=== PATIENT | female | born 1930 | race African-American/Black ===

== ENCOUNTER 2017-04-20 01:56 | Inpatient (IN) | payer BC, OTHER ==
[~2017-04-20] VITALS: Ht 157.5 cm; Wt 50.5 kg
[~2017-04-20 01:56] MED LIST: Albuterol Sulfate HHN; CLOP75TA15 PO; COR25 PO; FLUT1DIS3 ORI; LOSA50TA20 PO; SPIR25TA PO
[2017-04-20] MEDS ORDERED: NITROGLYCERIN OINT 1GM/INCH UDPKT TD STA (02:38)
[2017-04-20] MEDS ORDERED: FUROSEMIDE 40MG/4ML VIAL IV STA (02:38)
[2017-04-20 03:03] LABS: BASOPHILS % 0.4 % (0.0-2.0); HEMATOCRIT. 30.9 % (36.0-48.0); LYMPHOCYTES % 14.7 % (20.0-50.0); MEAN CORPUSCULAR HEMOGLOBIN 24.4 pg (28.0-32.0); MEAN CORPUSCULAR VOLUME 75.1 fL (81.0-99.0); MEAN PLATELET VOLUME 9.4 fl (7.4-10.4); MONOCYTES % 4.8 % (2.0-8.0); NEUTROPHILS % 79.1 % (40.0-76.0); PLATELET 119 x1000/uL (130-400); RED BLOOD CELL COUNT 4.11 mill/uL (4.2-5.4); RED CELL DISTRIBUTION WIDTH 17.5 % (11.6-14.6)
[2017-04-20 03:18] LABS: CARBON DIOXIDE 22 mEq/L (21-32); CHLORIDE 114 mEq/L (98-107); TROPONIN I 0.04 ng/mL (0.00-0.04)
[2017-04-20 03:47] LABS: BG BASE EXCESS -7.8 mmol/L (-2.0-2.0); BG BILEVEL POS AIRWAY PRESSURE 15/5; BG CARBOXYHEMOGLOBIN 0.3 % (0.5-1.5); BG DEOXYHEMOGLOBIN 1.9 % (0.0-5.0); BG FRACTION INSPIRED OXYGEN 50; BG HCO3 ACT 15.9 mmol/L (22.0-26.0); BG METHEMOGLOBIN 0.5 % (0.0-1.5); BG OXYGEN SATURATION 98.1 % (92.0-98.5); BG OXYHEMOGLOBIN 97.3 % (94.0-97.0); BG PCO2 26.7 mmHg (35.0-45.0); BG PH 7.392 (7.350-7.450); BG PO2 121.4 mmHg (75.0-100.0); BG SAMPLE SITE RIGHT RADIAL; BG TOTAL HEMOGLOBIN 9.9 g/dL (12.0-18.0); BG VENT MODE MASK - BIPAP
[2017-04-20 08:20] VITALS: BP 159/67
[2017-04-20] MEDS ORDERED: IPRATROPIUM/ALBUTEROL 0.5-3(2.5)MG/3ML NEB INH PRN (09:15)
[2017-04-20] MEDS ORDERED: HYDROCODONE/ACETAMINOPHEN 5/325MG TABLET PO PRN (09:15)
[2017-04-20] MEDS ORDERED: DOCUSATE SODIUM 100MG CAPSULE PO PRN (09:15)
[2017-04-20] MEDS ORDERED: LORAZEPAM 0.5MG TABLET PO PRN (09:15)
[2017-04-20] MEDS ORDERED: NA PHOS,M-B/NA PHOS,DI-BA ENEMA 118ML PR PRN (09:15)
[2017-04-20] MEDS ORDERED: MAGNESIUM/ALUMINUM HYDROXIDE/SIMETHICONE 30ML UDC PO PRN (09:15)
[2017-04-20] MEDS ORDERED: CLONIDINE 0.1MG TABLET PO PRN (09:15)
[2017-04-20] MEDS ORDERED: GUAIFENESIN 200MG/10ML SUGAR FREE UDC PO PRN (09:15)
[2017-04-20] MEDS ORDERED: ONDANSETRON HCL 4MG/2ML VIAL IV PRN (09:15)
[2017-04-20] MEDS ORDERED: ACETAMINOPHEN 325MG TABLET PO PRN (09:15)
[2017-04-20] MEDS ORDERED: DIPHENHYDRAMINE 50MG/ML VIAL IV PRN (09:15)
[2017-04-20] MEDS ORDERED: MORPHINE SULFATE 2 MG/ML CPJ (NOT FOR IM USE) IV PRN (09:15)
[2017-04-20] MEDS: ENOXAPARIN 30MG/0.3ML SYR SUBCUT SCH ×2 (10:30→14:08)
[2017-04-20 12:00] VITALS: BP 99/69
[2017-04-20 12:09] VITALS: BP 148/78
[2017-04-20] MEDS ORDERED: ATOR10TA69 PO (13:50)
[2017-04-20] MEDS ORDERED: FURO20TA4 PO (13:50)
[2017-04-20] MEDS ORDERED: OMEG1CAP66 PO (13:50)
[2017-04-20] MEDS ORDERED: MEGE40TA2 PO (13:50)
[2017-04-20] MEDS ORDERED: HYDR-4133 PO (13:50)
[2017-04-20] MEDS ORDERED: POTA10TA11 PO (13:50)
[2017-04-20] MEDS ORDERED: PRED10DR LEFTEYE (14:00)
[2017-04-20 16:00] VITALS: BP 128/65
[2017-04-20 17:25] LABS: CREATINE KINASE MB FRACTION 1.9 ng/mL (0.5-3.6); TROPONIN I 0.12 ng/mL (0.00-0.04)
[2017-04-20] MEDS ORDERED: ALBUTEROL SULFATE HHN PRN (19:45)
[2017-04-20 20:00] VITALS: BP 128/62
[2017-04-20] MEDS ORDERED: SALMETEROL ORI SCH (21:00)
[2017-04-20] MEDS ORDERED: CARVEDILOL 25MG TABLET PO SCH (21:00)
[2017-04-20] MEDS ORDERED: FLUTICASONE ORI SCH (21:00)
[2017-04-20] MEDS: PREDNISOLONE ACETATE 1% OPHTH DROPS 1ML LEFTEYE SCH (21:24)
[2017-04-20] MEDS: CARVEDILOL 12.5MG TABLET PO SCH (21:25)
[2017-04-20 23:21] LABS: CREATINE KINASE MB FRACTION 1.5 ng/mL (0.5-3.6); TROPONIN I 0.1 ng/mL (0.00-0.04)
[2017-04-21] VITALS: BP 137/72
[2017-04-21 04:00] VITALS: BP 143/77
[2017-04-21] MEDS ORDERED: HYDRALAZINE HCL 25MG TABLET PO SCH (06:30)
[2017-04-21 07:21] LABS: BASOPHILS % 0.7 % (0.0-2.0); EOSINOPHILS % 1.8 % (0.0-5.0); HEMATOCRIT. 24.6 % (36.0-48.0); HEMOGLOBIN. 8.1 g/dL (12.0-16.0); LYMPHOCYTES % 22.3 % (20.0-50.0); MEAN CORPUSCULAR HEMOGLOBIN 24.3 pg (28.0-32.0); MEAN CORPUSCULAR VOLUME 73.7 fL (81.0-99.0); MEAN PLATELET VOLUME 11.6 fl (7.4-10.4); MONOCYTES % 9.3 % (2.0-8.0); NEUTROPHILS % 65.9 % (40.0-76.0); PLATELET 134 x1000/uL (130-400); RED BLOOD CELL COUNT 3.34 mill/uL (4.2-5.4); RED CELL DISTRIBUTION WIDTH 16.5 % (11.6-14.6)
[2017-04-21 08:00] VITALS: BP 137/78
[2017-04-21 08:48] LABS: CARBON DIOXIDE 21 mEq/L (21-32); CHLORIDE 115 mEq/L (98-107); CREATINE KINASE 78 IU/L (26-192); CREATINE KINASE MB FRACTION 1.5 ng/mL (0.5-3.6); HDL CHOLESTEROL 32 mg/dL (40-59); LDL CHOLESTEROL 76 mg/dL (5-100); PHOSPHORUS 3.3 mg/dL (2.5-4.9); T4 FREE 0.96 ng/dL (0.76-1.46)
[2017-04-21] MEDS ORDERED: AMLODIPINE 5MG TABLET PO SCH (09:00)
[2017-04-21] MEDS: MEGESTROL ACETATE 40MG TABLET PO SCH ×2 (09:00→17:33)
[2017-04-21] MEDS ORDERED: POTASSIUM CHLORIDE PO SCH (09:00)
[2017-04-21] MEDS ORDERED: CLOPIDOGREL 75MG TABLET PO SCH (09:00)
[2017-04-21] MEDS ORDERED: FUROSEMIDE 20MG TABLET PO SCH (09:00)
[2017-04-21] MEDS: CLOPIDOGREL 75MG TABLET PO SCH (09:49)
[2017-04-21] MEDS: ASPIRIN 81MG EC TABLET PO SCH (09:49)
[2017-04-21] MEDS: CARVEDILOL 12.5MG TABLET PO SCH ×2 (09:51→21:21)
[2017-04-21] MEDS: SPIRONOLACTONE 25MG TABLET PO SCH (09:51)
[2017-04-21] MEDS: POTASSIUM CHLORIDE 10MEQ TABLET SR PO SCH (09:51)
[2017-04-21] MEDS: ATORVASTATIN CALCIUM 10MG TABLET PO SCH (09:51)
[2017-04-21] MEDS: ENOXAPARIN 30MG/0.3ML SYR SUBCUT SCH ×2 (09:52→10:10)
[2017-04-21] MEDS: LOSARTAN POTASSIUM 50 MG TABLET PO SCH (09:53)
[2017-04-21] MEDS: PREDNISOLONE ACETATE 1% OPHTH DROPS 1ML LEFTEYE SCH ×4 (10:05→21:27)
[2017-04-21] MEDS: FUROSEMIDE 40MG/4ML VIAL IV SCH (10:05)
[2017-04-21 12:00] VITALS: BP 131/65
[2017-04-21 16:00] VITALS: BP 142/63
[2017-04-21 20:00] VITALS: BP 147/56
[2017-04-21] MEDS: HYDRALAZINE HCL 25MG TABLET PO SCH (21:20)
[2017-04-22] VITALS: BP 147/60
[2017-04-22 04:00] VITALS: BP 146/83
[2017-04-22 08:00] VITALS: BP 144/66
[2017-04-22 08:18] LABS: BASOPHILS % 0.7 % (0.0-2.0); EOSINOPHILS % 2.4 % (0.0-5.0); HEMATOCRIT. 25.3 % (36.0-48.0); HEMOGLOBIN. 8.3 g/dL (12.0-16.0); LYMPHOCYTES % 26.1 % (20.0-50.0); MEAN CORPUSCULAR HEMOGLOBIN 24.1 pg (28.0-32.0); MEAN CORPUSCULAR VOLUME 73.5 fL (81.0-99.0); MONOCYTES % 10.4 % (2.0-8.0); NEUTROPHILS % 60.4 % (40.0-76.0); RED BLOOD CELL COUNT 3.44 mill/uL (4.2-5.4)
[2017-04-22 08:30] LABS: PHOSPHORUS 3.2 mg/dL (2.5-4.9)
[2017-04-22 08:50] LABS: PLATELET ESTIMATE SLIGHTLY DECREASED
[2017-04-22 08:51] LABS: MEAN PLATELET VOLUME 10.3 fl (7.4-10.4); PLATELET 118 x1000/uL (130-400)
[2017-04-22] MEDS: CARVEDILOL 12.5MG TABLET PO SCH ×2 (09:07→20:56)
[2017-04-22] MEDS: ASPIRIN 81MG EC TABLET PO SCH (09:07)
[2017-04-22] MEDS: SPIRONOLACTONE 25MG TABLET PO SCH (09:08)
[2017-04-22] MEDS: PREDNISOLONE ACETATE 1% OPHTH DROPS 1ML LEFTEYE SCH ×4 (09:08→20:58)
[2017-04-22] MEDS: POTASSIUM CHLORIDE 10MEQ TABLET SR PO SCH (09:08)
[2017-04-22] MEDS: FUROSEMIDE 40MG/4ML VIAL IV SCH (09:08)
[2017-04-22] MEDS: ATORVASTATIN CALCIUM 10MG TABLET PO SCH (09:08)
[2017-04-22] MEDS: HYDRALAZINE HCL 25MG TABLET PO SCH ×2 (09:08→20:57)
[2017-04-22] MEDS: MEGESTROL ACETATE 40MG TABLET PO SCH ×2 (09:08→16:36)
[2017-04-22] MEDS: LOSARTAN POTASSIUM 50 MG TABLET PO SCH (09:08)
[2017-04-22] MEDS: CLOPIDOGREL 75MG TABLET PO SCH (09:08)
[2017-04-22 12:00] VITALS: BP 118/48
[2017-04-22 16:00] VITALS: BP 143/66
[2017-04-22 20:00] VITALS: BP 121/53
[2017-04-22] MEDS: BUDESONIDE 0.5MG/2ML NEB HHN SCH (23:43)
[2017-04-23] VITALS: BP 131/65
[2017-04-23 04:00] VITALS: BP 141/70
[2017-04-23 07:05] LABS: BASOPHILS % 0.5 % (0.0-2.0); EOSINOPHILS % 2.2 % (0.0-5.0); HEMATOCRIT. 25.1 % (36.0-48.0); HEMOGLOBIN. 8.4 g/dL (12.0-16.0); LYMPHOCYTES % 26.1 % (20.0-50.0); MEAN CORPUSCULAR HEMOGLOBIN 24.4 pg (28.0-32.0); MEAN CORPUSCULAR VOLUME 73.2 fL (81.0-99.0); MEAN PLATELET VOLUME 11.7 fl (7.4-10.4); MONOCYTES % 11.3 % (2.0-8.0); NEUTROPHILS % 59.9 % (40.0-76.0); PLATELET 142 x1000/uL (130-400); RED BLOOD CELL COUNT 3.44 mill/uL (4.2-5.4); RED CELL DISTRIBUTION WIDTH 16.8 % (11.6-14.6)
[2017-04-23] MEDS ORDERED: SODIUM CHLORIDE 0.9% 10ML VIAL ONE (07:37)
[2017-04-23 07:42] LABS: PHOSPHORUS 3.4 mg/dL (2.5-4.9)
[2017-04-23 07:53] VITALS: BP 148/75
[2017-04-23 08:20] VITALS: BP 148/75
[2017-04-23] MEDS: BUDESONIDE 0.5MG/2ML NEB HHN SCH ×2 (08:32→08:34)
[2017-04-23] MEDS ORDERED: FUROSEMIDE 40MG TABLET PO SCH (09:00)
== END 2017-04-23 10:20 | disposition home or self-care (01) | DRG 291 ==
LOC: ER 02:01 → 6WST 04:58 → EDBEDREQ 05:40 → EDBEDREQSVC 05:40 → ENRESERV 09:06 → 5WST 11:24
PROVIDERS: ADMIT Internal Medicine; ATTEND Internal Medicine
PROC: 5A09357 Assistance with Respiratory Ventilation, Less than 24 Consecutive Hours, Continuous Positive Airway Pressure (ICD-10-PCS; principal; 2017-04-20)
DX: I13.0 Hypertensive heart and chronic kidney disease with heart failure and stage 1 through stage 4 chronic kidney disease, or unspecified chronic kidney disease (principal); J96.01 Acute respiratory failure with hypoxia; N17.0 Acute kidney failure with tubular necrosis; E43 Unspecified severe protein-calorie malnutrition; I50.23 Acute on chronic systolic (congestive) heart failure; J44.1 Chronic obstructive pulmonary disease with (acute) exacerbation; E87.2 Acidosis; I42.9 Cardiomyopathy, unspecified; N18.3 Chronic kidney disease, stage 3 (moderate); E11.22 Type 2 diabetes mellitus with diabetic chronic kidney disease; D64.9 Anemia, unspecified; I27.20 Pulmonary hypertension, unspecified; I08.1 Rheumatic disorders of both mitral and tricuspid valves; H40.9 Unspecified glaucoma; I71.4 Abdominal aortic aneurysm, without rupture; I25.10 Atherosclerotic heart disease of native coronary artery without angina pectoris; Z79.02 Long term (current) use of antithrombotics/antiplatelets; Z99.81 Dependence on supplemental oxygen; Z95.810 Presence of automatic (implantable) cardiac defibrillator; Z82.49 Family history of ischemic heart disease and other diseases of the circulatory system; Z68.20 Body mass index [BMI] 20.0-20.9, adult
CPT/HCPCS: 36415; 36600; 71010; 78582; 80048; 80053; 80061; 82375; 82550; 82553; 82805; 83036; 83605; 83735; 83880; 84100; 84439; 84443; 84484; 85025; 85379; 87040; 93005; 93306; 93970; 94640; 94660; 94664; 96374; 99291; A4216; A9558; J1650; J1940; J7620; J7626

== ENCOUNTER 2017-06-12 08:52 | Inpatient (IN) | payer OTHER ==
[2017-06-12] VITALS (10 sets, daily range): BP systolic 133–171; BP diastolic 57–98
[~2017-06-12] VITALS: Ht 157.5 cm; Wt 52.2 kg
[~2017-06-12 08:52] MED LIST changes: +ATOR10TA69 PO; +FURO20TA4 PO; +HYDR-4133 PO; +MEGE40TA2 PO; +OMEG1CAP66 PO; +POTA10TA11 PO; +PRED10DR LEFTEYE
[2017-06-12] MEDS ORDERED: FUROSEMIDE 40MG/4ML VIAL IV ONE (09:15)
[2017-06-12] MEDS ORDERED: NITROGLYCERIN OINT 1GM/INCH UDPKT TD ONE (09:15)
[2017-06-12] MEDS ORDERED: ASPIRIN 81MG TABLET PO ONE (09:15)
[2017-06-12 09:45] LABS: BG BASE EXCESS -2.4 mmol/L (-2.0-2.0); BG BILEVEL POS AIRWAY PRESSURE 15/5; BG CARBOXYHEMOGLOBIN 0.3 % (0.5-1.5); BG DEOXYHEMOGLOBIN 5.3 % (0.0-5.0); BG HCO3 ACT 21.6 mmol/L (22.0-26.0); BG OXYGEN SATURATION 94.7 % (92.0-98.5); BG OXYHEMOGLOBIN 94.4 % (94.0-97.0); BG PCO2 33.9 mmHg (35.0-45.0); BG PH 7.422 (7.350-7.450); BG PO2 75.6 mmHg (75.0-100.0); BG SAMPLE SITE RIGHT RADIAL; BG TOTAL HEMOGLOBIN 9.3 g/dL (12.0-18.0); BG VENT MODE MASK - BIPAP; BG VENT RATE 15 set
[2017-06-12 09:53] LABS: BASOPHILS % 0.4 % (0.0-2.0); EOSINOPHILS % 0.4 % (0.0-5.0); HEMOGLOBIN. 8.7 g/dL (12.0-16.0); LYMPHOCYTES % 10.4 % (20.0-50.0); MEAN CORPUSCULAR HEMOGLOBIN 24.2 pg (28.0-32.0); MEAN CORPUSCULAR VOLUME 75.4 fL (81.0-99.0); MONOCYTES % 8.2 % (2.0-8.0); NEUTROPHILS % 80.6 % (40.0-76.0); RED BLOOD CELL COUNT 3.59 mill/uL (4.2-5.4); RED CELL DISTRIBUTION WIDTH 17.8 % (11.6-14.6)
[2017-06-12 09:55] LABS: INR 1.3; PARTIAL THROMBOPLASTIN TIME 25.1 sec (23.4-31.0); PROTHROMBIN TIME 13.5 sec (9.4-11.6)
[2017-06-12 10:04] LABS: CARBON DIOXIDE 25 mEq/L (21-32); CHLORIDE 114 mEq/L (98-107); TROPONIN I 0.04 ng/mL (0.00-0.04)
[2017-06-12 10:24] LABS: PLATELET ESTIMATE NORMAL
[2017-06-12] MEDS ORDERED: CLONIDINE 0.1MG TABLET PO PRN (11:15)
[2017-06-12] MEDS ORDERED: DOCUSATE SODIUM 100MG CAPSULE PO PRN (11:15)
[2017-06-12] MEDS ORDERED: HYDROCODONE/ACETAMINOPHEN 5/325MG TABLET PO PRN (11:15)
[2017-06-12] MEDS ORDERED: MAGNESIUM/ALUMINUM HYDROXIDE/SIMETHICONE 30ML UDC PO PRN (11:15)
[2017-06-12] MEDS ORDERED: DIPHENHYDRAMINE 50MG/ML VIAL IV PRN (11:15)
[2017-06-12] MEDS ORDERED: GUAIFENESIN 200MG/10ML SUGAR FREE UDC PO PRN (11:15)
[2017-06-12] MEDS ORDERED: ACETAMINOPHEN 325MG TABLET PO PRN (11:15)
[2017-06-12] MEDS ORDERED: ONDANSETRON HCL 4MG/2ML VIAL IV PRN (11:15)
[2017-06-12] MEDS ORDERED: MORPHINE SULFATE 2 MG/ML CPJ (NOT FOR IM USE) IV PRN (11:15)
[2017-06-12] MEDS ORDERED: IPRATROPIUM/ALBUTEROL 0.5-3(2.5)MG/3ML NEB INH PRN (11:15)
[2017-06-12] MEDS ORDERED: NA PHOS,M-B/NA PHOS,DI-BA ENEMA 118ML PR PRN (11:15)
[2017-06-12] MEDS ORDERED: LORAZEPAM 2MG/ML CPJ IV PRN (11:15)
[2017-06-12 12:09] LABS: PLATELET 152 x1000/uL (130-400)
[2017-06-12] MEDS: ENOXAPARIN 30MG/0.3ML SYR SUBCUT SCH ×2 (12:30→12:54)
[2017-06-12] MEDS ORDERED: LEVOFLOXACIN 500MG PREMIX 100 ML IV NR (14:00)
[2017-06-12] MEDS: HYDRALAZINE HCL 10MG TABLET PO SCH ×2 (16:34→20:40)
[2017-06-12] MEDS: FUROSEMIDE 40MG/4ML VIAL IV SCH (16:35)
[2017-06-12] MEDS ORDERED: FERR325T6 PO (16:50)
[2017-06-12] MEDS ORDERED: SACU1TAB7 PO (16:50)
[2017-06-12] MEDS: ATORVASTATIN CALCIUM 10MG TABLET PO SCH (20:39)
[2017-06-12] MEDS: CARVEDILOL 25MG TABLET PO SCH (20:39)
[2017-06-13] VITALS (15 sets, daily range): BP systolic 118–160; BP diastolic 53–78
[2017-06-13] MEDS: FUROSEMIDE 40MG/4ML VIAL IV SCH (06:20)
[2017-06-13] MEDS: HYDRALAZINE HCL 10MG TABLET PO SCH ×3 (06:20→22:38)
[2017-06-13 06:26] LABS: BASOPHILS % 0.7 % (0.0-2.0); EOSINOPHILS % 0.6 % (0.0-5.0); HEMATOCRIT. 23.5 % (36.0-48.0); HEMOGLOBIN. 7.6 g/dL (12.0-16.0); LYMPHOCYTES % 20.5 % (20.0-50.0); MEAN CORPUSCULAR HEMOGLOBIN 24.2 pg (28.0-32.0); MEAN CORPUSCULAR VOLUME 74.4 fL (81.0-99.0); MONOCYTES % 13.7 % (2.0-8.0); NEUTROPHILS % 64.5 % (40.0-76.0); RED BLOOD CELL COUNT 3.16 mill/uL (4.2-5.4); RED CELL DISTRIBUTION WIDTH 17.5 % (11.6-14.6)
[2017-06-13 07:40] LABS: MEAN PLATELET VOLUME 9.7 fl (7.4-10.4); PLATELET 151 x1000/uL (130-400)
[2017-06-13] MEDS: CLOPIDOGREL 75MG TABLET PO SCH (08:54)
[2017-06-13] MEDS: CARVEDILOL 25MG TABLET PO SCH ×2 (08:54→22:38)
[2017-06-13] MEDS: ASPIRIN 81MG EC TABLET PO SCH (08:54)
[2017-06-13] MEDS: SPIRONOLACTONE 25MG TABLET PO SCH (08:55)
[2017-06-13] MEDS: ENOXAPARIN 30MG/0.3ML SYR SUBCUT SCH ×2 (08:55→08:58)
[2017-06-13 08:59] LABS: CARBON DIOXIDE 25 mEq/L (21-32); CHLORIDE 112 mEq/L (98-107); LDL CHOLESTEROL 79 mg/dL (5-100)
[2017-06-13 09:00] LABS: HDL CHOLESTEROL 41 mg/dL (40-59)
[2017-06-13] MEDS ORDERED: FUROSEMIDE 40MG/4ML VIAL IV SCH (09:00)
[2017-06-13] MEDS ORDERED: POTASSIUM CHLORIDE 20MEQ TABLET SR PO SCH (09:15)
[2017-06-13] MEDS ORDERED: MAGNESIUM 2 G PREMIX 50 ML IV NR (18:00)
[2017-06-13] MEDS ORDERED: EPOETIN ALFA 10000UNITS/ML VIAL SUBCUT SCH (21:00)
[2017-06-13] MEDS: ATORVASTATIN CALCIUM 10MG TABLET PO SCH (22:38)
[2017-06-14] VITALS (9 sets, daily range): BP systolic 114–141; BP diastolic 54–76
[2017-06-14 06:17] LABS: HEMATOCRIT. 23.9 % (36.0-48.0); HEMOGLOBIN. 7.7 g/dL (12.0-16.0); MEAN CORPUSCULAR HEMOGLOBIN 24.2 pg (28.0-32.0); RED BLOOD CELL COUNT 3.19 mill/uL (4.2-5.4); RED CELL DISTRIBUTION WIDTH 17.4 % (11.6-14.6)
[2017-06-14] MEDS: HYDRALAZINE HCL 10MG TABLET PO SCH (06:26)
[2017-06-14 07:29] LABS: PHOSPHORUS 2.8 mg/dL (2.5-4.9)
[2017-06-14 08:21] LABS: NUCLEATED RED BLOOD CELLS 1 /100 WBC
[2017-06-14 08:22] LABS: PLATELET ESTIMATE NORMAL
[2017-06-14 08:23] LABS: PLATELET 166 x1000/uL (130-400)
[2017-06-14] MEDS: CLOPIDOGREL 75MG TABLET PO SCH (08:52)
[2017-06-14] MEDS: ASPIRIN 81MG EC TABLET PO SCH (08:52)
[2017-06-14] MEDS: SPIRONOLACTONE 25MG TABLET PO SCH (08:52)
[2017-06-14] MEDS: CARVEDILOL 25MG TABLET PO SCH (08:52)
[2017-06-14] MEDS: ENOXAPARIN 30MG/0.3ML SYR SUBCUT SCH (09:00)
[2017-06-14] MEDS ORDERED: FUROSEMIDE 40MG/4ML VIAL IV SCH (09:00)
[2017-06-14] MEDS ORDERED: LEVOFLOXACIN 250MG PREMIX 50 ML IV SCH (14:00)
== END 2017-06-14 14:30 | disposition home or self-care (01) | DRG 291 ==
LOC: ER 09:05 → 3WST 10:34 → EDBEDREQSVC 10:36 → EDBEDREQ 10:36 → ENRESERV 10:58
PROVIDERS: ADMIT Internal Medicine; ATTEND Internal Medicine
PROC: 5A09357 Assistance with Respiratory Ventilation, Less than 24 Consecutive Hours, Continuous Positive Airway Pressure (ICD-10-PCS; principal; 2017-06-12)
DX: I13.0 Hypertensive heart and chronic kidney disease with heart failure and stage 1 through stage 4 chronic kidney disease, or unspecified chronic kidney disease (principal); J96.01 Acute respiratory failure with hypoxia; N17.0 Acute kidney failure with tubular necrosis; E43 Unspecified severe protein-calorie malnutrition; E87.3 Alkalosis; N18.4 Chronic kidney disease, stage 4 (severe); I08.1 Rheumatic disorders of both mitral and tricuspid valves; I50.43 Acute on chronic combined systolic (congestive) and diastolic (congestive) heart failure; E87.0 Hyperosmolality and hypernatremia; J44.1 Chronic obstructive pulmonary disease with (acute) exacerbation; N39.0 Urinary tract infection, site not specified; I27.20 Pulmonary hypertension, unspecified; I42.0 Dilated cardiomyopathy; E87.6 Hypokalemia; D50.9 Iron deficiency anemia, unspecified; E78.5 Hyperlipidemia, unspecified; H18.419 Arcus senilis, unspecified eye; Z79.02 Long term (current) use of antithrombotics/antiplatelets; Z82.49 Family history of ischemic heart disease and other diseases of the circulatory system; Z86.79 Personal history of other diseases of the circulatory system; Z95.810 Presence of automatic (implantable) cardiac defibrillator; Z99.81 Dependence on supplemental oxygen; Z79.899 Other long term (current) drug therapy; Z68.21 Body mass index [BMI] 21.0-21.9, adult
CPT/HCPCS: 36415; 36600; 71045; 76770; 80048; 80053; 80061; 82270; 82375; 82728; 82805; 83540; 83550; 83605; 83690; 83735; 83880; 84100; 84484; 85025; 85610; 85730; 87804; 93005; 94660; 96374; 97162; 97165; 99285; J0885; J1650; J1940; J1956; J3475; J7050

== ENCOUNTER 2017-07-11 09:24 | Inpatient (IN) | payer OTHER ==
[~2017-07-11] VITALS: Ht 157.5 cm; Wt 55.8 kg
[~2017-07-11 09:24] MED LIST changes: +FERR325T6 PO; +SACU1TAB7 PO
[2017-07-11] MEDS ORDERED: METHYLPREDNISOLONE SOD SUCC 125 MG/2 ML VIAL IV STA (09:36)
[2017-07-11] MEDS: ALBUTEROL (0.083%) 2.5MG/3ML NEB HHN STA (09:45)
[2017-07-11] MEDS: IPRATROPIUM BROMIDE (0.02%) 0.5MG/2.5ML NEB HHN STA (09:45)
[2017-07-11] MEDS ORDERED: NITROGLYCERIN OINT 1GM/INCH UDPKT TD ONE (09:45)
[2017-07-11] MEDS ORDERED: FUROSEMIDE 40MG/4ML VIAL IVP ONE (09:45)
[2017-07-11] MEDS ORDERED: MAGNESIUM 2 G PREMIX 50 ML IV ONE (09:45)
[2017-07-11 10:20] LABS: HEMATOCRIT. 26.4 % (36.0-48.0); HEMOGLOBIN. 8.5 g/dL (12.0-16.0); MEAN CORPUSCULAR HEMOGLOBIN 24.9 pg (28.0-32.0); MEAN CORPUSCULAR VOLUME 77.1 fL (81.0-99.0); RED BLOOD CELL COUNT 3.43 mill/uL (4.2-5.4); RED CELL DISTRIBUTION WIDTH 17.1 % (11.6-14.6)
[2017-07-11 10:22] LABS: INR 1.4; PARTIAL THROMBOPLASTIN TIME 26.8 sec (23.4-31.0); PROTHROMBIN TIME 14.7 sec (9.4-11.6)
[2017-07-11 10:24] LABS: CHLORIDE 113 mEq/L (98-107)
[2017-07-11 10:29] LABS: TROPONIN I 0.19 ng/mL (0.00-0.04)
[2017-07-11] MEDS ORDERED: LEVOFLOXACIN 750MG PREMIX 150 ML IV ONE (10:30)
[2017-07-11 10:33] LABS: PLATELET ESTIMATE DECREASED
[2017-07-11 10:36] LABS: PLATELET 125 x1000/uL (130-400)
[2017-07-11 11:35] LABS: BG BASE EXCESS -1.3 mmol/L (-2.0-2.0); BG CARBOXYHEMOGLOBIN 1.1 % (0.5-1.5); BG FRACTION INSPIRED OXYGEN 28; BG HCO3 ACT 22.3 mmol/L (22.0-26.0); BG METHEMOGLOBIN 0.4 % (0.0-1.5); BG OXYGEN SATURATION 83.8 % (92.0-98.5); BG OXYHEMOGLOBIN 82.5 % (94.0-97.0); BG PCO2 32.7 mmHg (35.0-45.0); BG PH 7.451 (7.350-7.450); BG PO2 48.2 mmHg (75.0-100.0); BG SAMPLE SITE LEFT BRACHIAL; BG TOTAL HEMOGLOBIN 9.4 g/dL (12.0-18.0); BG VENT MODE NASAL CANNULA
[2017-07-11 13:30] VITALS: BP 172/92
[2017-07-11 14:00] VITALS: BP 169/83
[2017-07-11] MEDS ORDERED: ACETAMINOPHEN 325MG TABLET PO PRN (14:15)
[2017-07-11] MEDS ORDERED: IPRATROPIUM/ALBUTEROL 0.5-3(2.5)MG/3ML NEB HHN PRN (14:15)
[2017-07-11] MEDS: HYDRALAZINE HCL 25MG TABLET PO SCH ×2 (14:44→21:05)
[2017-07-11] MEDS: GUAIFENESIN 600MG ER TABLET PO SCH ×2 (14:45→21:05)
[2017-07-11] MEDS: ENOXAPARIN 30MG/0.3ML SYR SUBCUT SCH (14:48)
[2017-07-11 16:00] VITALS: BP 156/77
[2017-07-11] MEDS: FUROSEMIDE 20MG TABLET PO SCH (16:24)
[2017-07-11] MEDS: MEGESTROL ACETATE 400 MG/10 ML UDC PO SCH (16:24)
[2017-07-11 18:00] VITALS: BP 157/75
[2017-07-11 20:00] VITALS: BP 130/59
[2017-07-11] MEDS: IPRATROPIUM/ALBUTEROL 0.5-3(2.5)MG/3ML NEB HHN SCH (20:02)
[2017-07-11] MEDS: BUDESONIDE 0.5MG/2ML NEB HHN SCH (20:02)
[2017-07-11] MEDS: CARVEDILOL 25MG TABLET PO SCH (21:04)
[2017-07-11] MEDS: ATORVASTATIN CALCIUM 10MG TABLET PO SCH (21:05)
[2017-07-11 22:00] VITALS: BP 150/71
[2017-07-12] VITALS (12 sets, daily range): BP systolic 118–149; BP diastolic 49–81
[2017-07-12] MEDS: IPRATROPIUM/ALBUTEROL 0.5-3(2.5)MG/3ML NEB HHN SCH ×4 (01:44→20:29)
[2017-07-12] MEDS: HYDRALAZINE HCL 25MG TABLET PO SCH ×3 (06:17→21:12)
[2017-07-12] MEDS ORDERED: INFLUENZA VIRUS VACCINE 0.5ML SYR IM ONE (07:30)
[2017-07-12 07:40] LABS: HEMATOCRIT. 26.6 % (36.0-48.0); HEMOGLOBIN. 8.6 g/dL (12.0-16.0); MEAN CORPUSCULAR HEMOGLOBIN 24.3 pg (28.0-32.0); RED BLOOD CELL COUNT 3.55 mill/uL (4.2-5.4); RED CELL DISTRIBUTION WIDTH 16.7 % (11.6-14.6)
[2017-07-12] MEDS: ENOXAPARIN 30MG/0.3ML SYR SUBCUT SCH (09:00)
[2017-07-12] MEDS: BUDESONIDE 0.5MG/2ML NEB HHN SCH ×2 (09:11→20:29)
[2017-07-12 09:34] LABS: PLATELET ESTIMATE DECREASED
[2017-07-12] MEDS: CARVEDILOL 25MG TABLET PO SCH ×2 (09:34→21:12)
[2017-07-12] MEDS: CLOPIDOGREL 75MG TABLET PO SCH (09:34)
[2017-07-12 09:36] LABS: PLATELET 117 x1000/uL (130-400)
[2017-07-12] MEDS: GUAIFENESIN 600MG ER TABLET PO SCH ×2 (09:37→21:12)
[2017-07-12] MEDS: FUROSEMIDE 20MG TABLET PO SCH ×2 (09:37→16:21)
[2017-07-12] MEDS: MEGESTROL ACETATE 400 MG/10 ML UDC PO SCH ×2 (09:38→16:21)
[2017-07-12] MEDS ORDERED: BISACODYL 5MG TABLET PO PRN (11:00)
[2017-07-12] MEDS: POTASSIUM CHLORIDE 20MEQ TABLET SR PO SCH (11:45)
[2017-07-12] MEDS: DOCUSATE SODIUM 250MG CAPSULE PO SCH (11:46)
[2017-07-12] MEDS ORDERED: NON FORMULARY PATIENT HOME MED EA XX SCH (13:45)
[2017-07-12] MEDS: ENTRESTO PO SCH ×2 (16:21→22:11)
[2017-07-12 16:27] LABS: CLARITY URINE CLOUDY (CLEAR); COLOR URINE YELLOW (YELLOW); KETONES URINE NEGATIVE (NEGATIVE); LEUKOCYTE ESTERASE URINE 3+ (NEGATIVE); NITRITE URINE NEGATIVE (NEGATIVE); OCCULT BLOOD URINE TRACE (NEGATIVE); PROTEIN URINE 3+ (NEGATIVE); SPECIFIC GRAVITY URINE 1.018 (1.005-1.030); UROBILINOGEN URINE 0.2 E.U./dL (0.2-1.0)
[2017-07-12] MEDS: ATORVASTATIN CALCIUM 10MG TABLET PO SCH (21:12)
[2017-07-13] VITALS (12 sets, daily range): BP systolic 111–144; BP diastolic 52–74
[2017-07-13] MEDS: IPRATROPIUM/ALBUTEROL 0.5-3(2.5)MG/3ML NEB HHN SCH ×3 (02:18→21:07)
[2017-07-13] MEDS: HYDRALAZINE HCL 25MG TABLET PO SCH ×3 (06:12→21:19)
[2017-07-13 07:31] LABS: HEMATOCRIT. 25.4 % (36.0-48.0); HEMOGLOBIN. 8.4 g/dL (12.0-16.0); MEAN CORPUSCULAR HEMOGLOBIN 24.8 pg (28.0-32.0); MEAN CORPUSCULAR VOLUME 75.2 fL (81.0-99.0); MEAN PLATELET VOLUME 11.5 fl (7.4-10.4); PLATELET 133 x1000/uL (130-400); RED BLOOD CELL COUNT 3.38 mill/uL (4.2-5.4); RED CELL DISTRIBUTION WIDTH 16.8 % (11.6-14.6)
[2017-07-13 07:41] LABS: PHOSPHORUS 3.3 mg/dL (2.5-4.9); PREALBUMIN 30.2 mg/dL (20.0-40.0)
[2017-07-13] MEDS: ENOXAPARIN 30MG/0.3ML SYR SUBCUT SCH (09:00)
[2017-07-13 09:11] LABS: PLATELET ESTIMATE NORMAL
[2017-07-13] MEDS: BUDESONIDE 0.5MG/2ML NEB HHN SCH ×2 (09:26→21:07)
[2017-07-13] MEDS: CLOPIDOGREL 75MG TABLET PO SCH (09:56)
[2017-07-13] MEDS: GUAIFENESIN 600MG ER TABLET PO SCH ×2 (09:56→21:17)
[2017-07-13] MEDS: MEGESTROL ACETATE 400 MG/10 ML UDC PO SCH ×2 (09:56→16:20)
[2017-07-13] MEDS: FUROSEMIDE 20MG TABLET PO SCH ×2 (09:56→16:20)
[2017-07-13] MEDS: CARVEDILOL 25MG TABLET PO SCH ×2 (09:56→21:18)
[2017-07-13] MEDS: ENTRESTO PO SCH ×2 (10:00→21:19)
[2017-07-13] MEDS: POTASSIUM CHLORIDE 20MEQ TABLET SR PO SCH (10:00)
[2017-07-13] MEDS: DOCUSATE SODIUM 250MG CAPSULE PO SCH (10:00)
[2017-07-13] MEDS: ATORVASTATIN CALCIUM 10MG TABLET PO SCH (21:17)
[2017-07-14] VITALS (13 sets, daily range): BP systolic 90–122; BP diastolic 47–67
[2017-07-14] MEDS: IPRATROPIUM/ALBUTEROL 0.5-3(2.5)MG/3ML NEB HHN SCH ×5 (03:03→20:43)
[2017-07-14] MEDS: HYDRALAZINE HCL 25MG TABLET PO SCH ×2 (05:18→14:00)
[2017-07-14 08:08] LABS: BASOPHILS % 0.4 % (0.0-2.0); EOSINOPHILS % 0.2 % (0.0-5.0); HEMATOCRIT. 30.5 % (36.0-48.0); HEMOGLOBIN. 9.6 g/dL (12.0-16.0); LYMPHOCYTES % 16.1 % (20.0-50.0); MEAN CORPUSCULAR VOLUME 75.9 fL (81.0-99.0); MONOCYTES % 9.1 % (2.0-8.0); NEUTROPHILS % 74.2 % (40.0-76.0); RED BLOOD CELL COUNT 4.02 mill/uL (4.2-5.4); RED CELL DISTRIBUTION WIDTH 16.6 % (11.6-14.6)
[2017-07-14 08:57] LABS: PHOSPHORUS 2.5 mg/dL (2.5-4.9)
[2017-07-14] MEDS: ENOXAPARIN 30MG/0.3ML SYR SUBCUT SCH (09:00)
[2017-07-14] MEDS: BUDESONIDE 0.5MG/2ML NEB HHN SCH ×2 (09:00→10:19)
[2017-07-14 09:09] LABS: IMMUNOGLOBULIN A 119 mg/dL (64-422); IMMUNOGLOBULIN G 604 mg/dL (700-1600); IMMUNOGLOBULIN M 50 mg/dL (26-217)
[2017-07-14] MEDS: POTASSIUM CHLORIDE 20MEQ TABLET SR PO SCH (09:44)
[2017-07-14] MEDS: GUAIFENESIN 600MG ER TABLET PO SCH ×2 (09:44→20:42)
[2017-07-14] MEDS: CARVEDILOL 25MG TABLET PO SCH (09:44)
[2017-07-14] MEDS: FUROSEMIDE 20MG TABLET PO SCH ×2 (09:44→17:08)
[2017-07-14] MEDS: MEGESTROL ACETATE 400 MG/10 ML UDC PO SCH ×2 (09:44→17:08)
[2017-07-14] MEDS: DOCUSATE SODIUM 250MG CAPSULE PO SCH (09:44)
[2017-07-14] MEDS: CLOPIDOGREL 75MG TABLET PO SCH (09:44)
[2017-07-14] MEDS: ENTRESTO PO SCH ×2 (09:59→20:42)
[2017-07-14 17:52] LABS: PLATELET ESTIMATE NORMAL
[2017-07-14] MEDS: ATORVASTATIN CALCIUM 10MG TABLET PO SCH (20:42)
[2017-07-15] VITALS (11 sets, daily range): BP systolic 93–121; BP diastolic 46–65
[2017-07-15] MEDS: IPRATROPIUM/ALBUTEROL 0.5-3(2.5)MG/3ML NEB HHN SCH ×4 (01:47→20:49)
[2017-07-15 08:03] LABS: BASOPHILS % 0.3 % (0.0-2.0); EOSINOPHILS % 0.7 % (0.0-5.0); HEMATOCRIT. 31.9 % (36.0-48.0); HEMOGLOBIN. 10.5 g/dL (12.0-16.0); LYMPHOCYTES % 18.6 % (20.0-50.0); MEAN CORPUSCULAR HEMOGLOBIN 24.8 pg (28.0-32.0); MEAN CORPUSCULAR VOLUME 75.5 fL (81.0-99.0); MONOCYTES % 8.7 % (2.0-8.0); NEUTROPHILS % 71.7 % (40.0-76.0); RED BLOOD CELL COUNT 4.22 mill/uL (4.2-5.4); RED CELL DISTRIBUTION WIDTH 17.2 % (11.6-14.6)
[2017-07-15 08:42] LABS: PHOSPHORUS 2.9 mg/dL (2.5-4.9)
[2017-07-15] MEDS: FUROSEMIDE 20MG TABLET PO SCH ×2 (08:55→17:27)
[2017-07-15] MEDS: CLOPIDOGREL 75MG TABLET PO SCH (08:55)
[2017-07-15] MEDS: ENTRESTO PO SCH ×2 (08:55→21:57)
[2017-07-15] MEDS: DOCUSATE SODIUM 250MG CAPSULE PO SCH (08:55)
[2017-07-15] MEDS: GUAIFENESIN 600MG ER TABLET PO SCH ×2 (08:55→21:57)
[2017-07-15] MEDS: MEGESTROL ACETATE 400 MG/10 ML UDC PO SCH ×2 (08:55→17:27)
[2017-07-15] MEDS: POTASSIUM CHLORIDE 20MEQ TABLET SR PO SCH (08:55)
[2017-07-15] MEDS: ENOXAPARIN 30MG/0.3ML SYR SUBCUT SCH (08:56)
[2017-07-15 13:35] LABS: MEAN PLATELET VOLUME 9.6 fl (7.4-10.4); PLATELET 124 x1000/uL (130-400)
[2017-07-15] MEDS: ATORVASTATIN CALCIUM 10MG TABLET PO SCH (21:57)
[2017-07-16] VITALS (11 sets, daily range): BP systolic 93–112; BP diastolic 33–78
[2017-07-16] MEDS: IPRATROPIUM/ALBUTEROL 0.5-3(2.5)MG/3ML NEB HHN SCH ×2 (00:39→12:11)
[2017-07-16 06:34] LABS: BASOPHILS % 0.4 % (0.0-2.0); EOSINOPHILS % 1.5 % (0.0-5.0); HEMATOCRIT. 31.8 % (36.0-48.0); LYMPHOCYTES % 21.4 % (20.0-50.0); MEAN CORPUSCULAR HEMOGLOBIN 23.8 pg (28.0-32.0); MEAN CORPUSCULAR VOLUME 75.7 fL (81.0-99.0); MEAN PLATELET VOLUME 11.9 fl (7.4-10.4); MONOCYTES % 8.8 % (2.0-8.0); NEUTROPHILS % 67.9 % (40.0-76.0); PLATELET 152 x1000/uL (130-400); RED CELL DISTRIBUTION WIDTH 16.9 % (11.6-14.6)
[2017-07-16 07:16] LABS: PHOSPHORUS 3.3 mg/dL (2.5-4.9)
[2017-07-16] MEDS: ENOXAPARIN 30MG/0.3ML SYR SUBCUT SCH (09:00)
[2017-07-16 09:06] LABS: A/G RATIO 1.2 (0.7-1.7); ALBUMIN 2.9 g/dL (2.9-4.4); ALPHA-1-GLOBULIN 0.3 g/dL (0.0-0.4); ALPHA-2-GLOBULIN 0.6 g/dL (0.4-1.0); BETA GLOBULIN 0.9 g/dL (0.7-1.3); GAMMA GLOBULINS 0.6 g/dL (0.4-1.8); GLOBULIN TOTAL 2.5 g/dL (2.2-3.9); M-SPIKE Not Observed g/dL (Not Observed); TOTAL PROTEIN SERUM 5.4 g/dL (6.0-8.5)
[2017-07-16] MEDS: DOCUSATE SODIUM 250MG CAPSULE PO SCH (09:31)
[2017-07-16] MEDS: MEGESTROL ACETATE 400 MG/10 ML UDC PO SCH ×2 (09:31→17:44)
[2017-07-16] MEDS: FUROSEMIDE 20MG TABLET PO SCH (09:31)
[2017-07-16] MEDS: CLOPIDOGREL 75MG TABLET PO SCH (09:31)
[2017-07-16] MEDS: GUAIFENESIN 600MG ER TABLET PO SCH (09:32)
[2017-07-16] MEDS: ENTRESTO PO SCH (09:39)
[2017-07-17] MEDS ORDERED: FUROSEMIDE 20MG TABLET PO SCH (09:00)
== END 2017-07-16 19:00 | disposition home or self-care (01) | DRG 291 ==
LOC: ER 09:24 → 5EST 10:34 → EDBEDREQ 10:37 → ENRESERV 11:07
PROVIDERS: ADMIT Specialist; ATTEND Specialist
PROC: 5A09357 Assistance with Respiratory Ventilation, Less than 24 Consecutive Hours, Continuous Positive Airway Pressure (ICD-10-PCS; principal; 2017-07-11)
PROC: 5A09357 Assistance with Respiratory Ventilation, Less than 24 Consecutive Hours, Continuous Positive Airway Pressure (ICD-10-PCS; 2017-07-12)
PROC: 5A09357 Assistance with Respiratory Ventilation, Less than 24 Consecutive Hours, Continuous Positive Airway Pressure (ICD-10-PCS; 2017-07-13)
DX: I13.0 Hypertensive heart and chronic kidney disease with heart failure and stage 1 through stage 4 chronic kidney disease, or unspecified chronic kidney disease (principal); I50.23 Acute on chronic systolic (congestive) heart failure; J96.21 Acute and chronic respiratory failure with hypoxia; E44.0 Moderate protein-calorie malnutrition; N18.4 Chronic kidney disease, stage 4 (severe); N17.9 Acute kidney failure, unspecified; I27.20 Pulmonary hypertension, unspecified; I08.1 Rheumatic disorders of both mitral and tricuspid valves; J44.1 Chronic obstructive pulmonary disease with (acute) exacerbation; I42.0 Dilated cardiomyopathy; D63.1 Anemia in chronic kidney disease; E87.6 Hypokalemia; I25.10 Atherosclerotic heart disease of native coronary artery without angina pectoris; I73.9 Peripheral vascular disease, unspecified; Z60.2 Problems related to living alone; H40.9 Unspecified glaucoma; D50.9 Iron deficiency anemia, unspecified; E78.5 Hyperlipidemia, unspecified; Z95.810 Presence of automatic (implantable) cardiac defibrillator; Z79.02 Long term (current) use of antithrombotics/antiplatelets; Z82.49 Family history of ischemic heart disease and other diseases of the circulatory system; Z99.81 Dependence on supplemental oxygen; Z86.79 Personal history of other diseases of the circulatory system; Z87.891 Personal history of nicotine dependence; Z84.89 Family history of other specified conditions; Z79.899 Other long term (current) drug therapy; Z98.49 Cataract extraction status, unspecified eye; Z68.22 Body mass index [BMI] 22.0-22.9, adult
CPT/HCPCS: 36415; 36600; 71045; 80048; 80053; 81003; 82330; 82375; 82570; 82784; 82805; 83605; 83690; 83735; 83880; 84100; 84134; 84155; 84156; 84165; 84484; 85025; 85610; 85730; 86334; 87040; 87086; 87804; 90686; 93005; 94640; 94660; 96365; 96366; 96375; 97112; 97116; 97162; 97166; 99291; J1650; J1940; J1956; J2930; J3475; J7050; J7611; J7620; J7626

== ENCOUNTER 2017-08-15 17:13 | Emergency (ER) | payer OTHER ==
[~2017-08-15] VITALS: Ht 157.5 cm; Wt 51.0 kg
[2017-08-15 17:26] VITALS: BP 156/79
[2017-08-15] MEDS ORDERED: ASPIRIN 81MG TABLET PO ONE (18:45)
[2017-08-15 20:00] LABS: HEMATOCRIT. 32.1 % (36.0-48.0); HEMOGLOBIN. 10.2 g/dL (12.0-16.0); MEAN CORPUSCULAR HEMOGLOBIN 23.9 pg (28.0-32.0); MEAN PLATELET VOLUME 10.5 fl (7.4-10.4); PLATELET 143 x1000/uL (130-400); RED BLOOD CELL COUNT 4.28 mill/uL (4.2-5.4); RED CELL DISTRIBUTION WIDTH 15.8 % (11.6-14.6)
[2017-08-15 20:04] LABS: CHLORIDE 111 mEq/L (98-107)
[2017-08-15 20:06] LABS: INR 1.4; PROTHROMBIN TIME 14.2 sec (9.4-11.6)
[2017-08-15 20:09] LABS: ETHANOL BLOOD < 10 mg/dL
[2017-08-15 21:08] LABS: PLATELET ESTIMATE NORMAL
== END 2017-08-15 21:43 | disposition left against medical advice (07) ==
LOC: ER 18:12
DX: R52 Pain, unspecified (principal); J44.9 Chronic obstructive pulmonary disease, unspecified; I11.0 Hypertensive heart disease with heart failure; I50.9 Heart failure, unspecified; Z87.891 Personal history of nicotine dependence; Z53.21 Procedure and treatment not carried out due to patient leaving prior to being seen by health care provider
CPT/HCPCS: 36415; 71045; 80053; 84484; 85025; 85610; 93005; G0482; 80305; 99285

== ENCOUNTER 2017-11-27 09:17 | Emergency (ER) | payer OTHER ==
[~2017-11-27] VITALS: Ht 160 cm; Wt 51.0 kg
[2017-11-27 10:47] LABS: BASOPHILS % 0.4 % (0.0-2.0); EOSINOPHILS % 2.2 % (0.0-5.0); HEMATOCRIT. 29.5 % (36.0-48.0); HEMOGLOBIN. 9.4 g/dL (12.0-16.0); LYMPHOCYTES % 17.2 % (20.0-50.0); MEAN CORPUSCULAR HEMOGLOBIN 24.2 pg (28.0-32.0); MEAN CORPUSCULAR VOLUME 76.2 fL (81.0-99.0); MONOCYTES % 7.3 % (2.0-8.0); NEUTROPHILS % 72.9 % (40.0-76.0); RED BLOOD CELL COUNT 3.87 mill/uL (4.2-5.4); RED CELL DISTRIBUTION WIDTH 16.8 % (11.6-14.6)
[2017-11-27 10:57] LABS: CHLORIDE 119 mEq/L (98-107)
[2017-11-27 12:05] VITALS: BP 134/56
[2017-11-27 12:28] LABS: MEAN PLATELET VOLUME 10.7 fl (7.4-10.4); PLATELET 63 x1000/uL (130-400)
== END 2017-11-27 12:10 | disposition home or self-care (01) ==
LOC: ER 09:28
DX: I95.9 Hypotension, unspecified (principal); I11.0 Hypertensive heart disease with heart failure; I50.9 Heart failure, unspecified; J44.9 Chronic obstructive pulmonary disease, unspecified; Z95.0 Presence of cardiac pacemaker; Z79.899 Other long term (current) drug therapy
CPT/HCPCS: 36415; 80053; 84484; 85025; 93005; 99285